=== PATIENT | female | born 1985 | race Caucasian/White ===

== ENCOUNTER 2025-01-01 08:10 | Outpatient (CLI) | payer OTHER, SELFPAY ==
--- NOTE | ~2025-01-01 | US_ITS ---
EXAMINATION: US abdomen limited DATE: 01/01/2025 08:34 INDICATION: RUQ ABD PAIN TECHNIQUE: Multiple grayscale and Doppler ultrasound images of limited portions of the abdomen were o btained. COMPARISON: None available. FINDINGS: The visualized portions of the pancreas are normal. The liver is normal with normal echogen icity and echotexture. No surface nodularity. Normal hepatopetal flow in the main portal vein. The ga llbladder is normal with no abnormal wall thickening, pericholecystic fluid or stones. The common arturo e duct measures 2.0 mm. There was no sonographic [place] sign. IMPRESSION: Normal limited abdominal ultrasound findings. Reviewed, dictated and finalized at location K. [facility]
== END 2025-01-01 08:11 | disposition home or self-care (01) ==
LOC: MICIMG 08:11
PROVIDERS: Visit Provider Nurse Practitioner
DX: R10.11 Right upper quadrant pain (principal)
CPT/HCPCS: 76705